=== PATIENT | female | born 1985 | race Caucasian/White ===

== ENCOUNTER → 2016-05-24 | Outpatient (CLI) | payer OTHER ==
[~2016-05-24] VITALS: Ht 167.6 cm; Wt 59.0 kg
[~2016-05-24] MED LIST: LIDOCAINE 2% INJ 100 MG/5 ML SDV (FOR ANES.) As Ordered ONE; LINZ290C PO; NS 1,000 ML IV SCH; PROPOFOL 200 MG/20 ML VIAL As Ordered ONE; SPRI28TA PO
--- NOTE | 2016-05-24 12:30 | ROOR ---
Patient Name: Milli Garrison Procedure Date: 05/24/2016 12:12 PM Date of : 1985 Age: 31 Room: [facility] Gender: Female Note Status: Finalized Procedure: Upper GI endoscopy Indications: Heartburn Providers: Sidney LIM MD Referring MD: Nafisa ROWE ([facility]/Brie Vides), WATERSHED TENDER Requesting Provider: Medicines: Monitored Anesthesia Care Complications: No immediate complications. Procedure: Pre-Anesthesia Assessment: - The heart rate, respiratory rate, oxygen saturations, blood pressure, adequacy of pulmonary ventilation, and response to care were monitored throughout the procedure. The Endoscope was introduced through the mouth, and advanced to the second part of duodenum. The upper GI endoscopy was accomplished without difficulty. The patient tolerated the procedure well. Findings: The examined esophagus was normal. The entire examined stomach was normal. A post-ulcer deformity was found in the second portion of the duodenum. Biopsies were taken with a cold forceps for histology. Impression: - Normal esophagus. - Normal stomach. - Duodenal deformity/(old scars from possible previous duodenal ulcer disease). Biopsied. Recommendation: - Continue present medications. - Observe patient's clinical course. - Telephone endoscopist for pathology results in 2 weeks. Sidney Lim MD Sidney LIM MD 05/24/2016 12:30:06 PM This report has been signed electronically. Number of Addenda: 0 Note Initiated On: 05/24/2016 12:12 PM Estimated Blood Loss: Estimated blood loss: none.
--- NOTE | 2016-05-24 13:03 | ROOR ---
Patient Name: Milli Garrison Procedure Date: 05/24/2016 12:13 PM Date of : 1985 Age: 31 Room: [facility] Gender: Female Note Status: Finalized Procedure: Colonoscopy Indications: Generalized abdominal pain, Chronic diarrhea Providers: Sidney LIM MD Referring MD: Nafisa ROWE ([facility]/Brie Vides), INDUSTRIAL CONTROLLER Requesting Provider: Medicines: Monitored Anesthesia Care Complications: No immediate complications. Procedure: Pre-Anesthesia Assessment: - The heart rate, respiratory rate, oxygen saturations, blood pressure, adequacy of pulmonary ventilation, and response to care were monitored throughout the procedure. The Colonoscope was introduced through the anus and advanced to 4 cm into the ileum. The colonoscopy was performed without difficulty. The patient tolerated the procedure well. The quality of the bowel preparation was fair. Findings: The perianal and digital rectal examinations were normal. Pertinent negatives include no palpable rectal lesions. (EXAM: Complete, PREP: Fair/Adequate) The terminal ileum contained a benign-appearing, intrinsic severe stenosis that was non-traversed. Biopsies were taken with a cold forceps for histology. Patchy inflammation, severe and characterized by erythema, scarring and deep ulcerations was found in the terminal ileum. Biopsies were taken with a cold forceps for histology. A 5 mm polyp was found in the rectum. The polyp was sessile. The polyp was removed with a cold snare. Resection and retrieval were complete. The exam was otherwise without abnormality. Impression: - EXAM: Complete, PREP: Fair/Adequate - Crohns disease of the ileum/small bowel is suspected: Ileitis,ulcerations and stenosis most consistent with Crohn's disease. Biopsied. - One 5 mm polyp in the mid rectum, removed with a cold snare. Resected and retrieved. - The colon examination was otherwise normal. - (Note Upper scope of earlier today: The duodenal scars are likely related to small bowel crohns disease as well) Recommendation: - STOP: Linzess, you can use Miralax once or twice a day if necessary - START:Use Pentasa/Mesalamine 1 gram four times a day - START:Use Entocort/Budesonide 9 mg one time per day. (or prednisone depending on your insurance coverage) - (the script was sent to your pharmacy on file) - complete stool testing--my office will send you script - complete a small bowel X-Ray study--my office will set you up - Return to my office in 3-4-5 weeks. (my office will call you) Sidney Lim MD Sidney LIM MD 05/24/2016 1:02:55 PM This report has been signed electronically. Number of Addenda: 0 Note Initiated On: 05/24/2016 12:13 PM Estimated Blood Loss: Estimated blood loss: none.
[2016-05-24 13:10] VITALS: BP 108/68
== END ==
LOC: M OPP 11:46
PROVIDERS: ATTEND Internal Medicine Gastroenterology
DX: R10.84 Generalized abdominal pain (principal); K31.89 Other diseases of stomach and duodenum; K56.69 Other intestinal obstruction; K62.1 Rectal polyp; R12 Heartburn; K59.00 Constipation, unspecified; R13.10 Dysphagia, unspecified; K21.9 Gastro-esophageal reflux disease without esophagitis; K58.9 Irritable bowel syndrome, unspecified; Z79.899 Other long term (current) drug therapy

== ENCOUNTER → 2016-06-06 | Outpatient (CLI) | payer OTHER ==
[~2016-06-06] MED LIST changes: +E-Z PAQUE 60% w/v SUSP 355ML BOTTLE As Ordered ONE; -LIDOCAINE 2% INJ 100 MG/5 ML SDV (FOR ANES.) As Ordered ONE; -NS 1,000 ML IV SCH; -PROPOFOL 200 MG/20 ML VIAL As Ordered ONE
--- NOTE | 2016-06-06 16:31 | REP ---
SMALL BOWEL FOLLOW-THROUGH: The procedure was performed under the direct supervision of Dr. Cadena. The images were reviewed with Dr. Cadena. The aerospace assembler film shows no organomegaly or pathological masses. The intestinal gas pattern is nonspecific. Liquid barium was administered and the barium column was followed through the small bowel to the level of the terminal ileum. Small bowel transit time is approximately 3 hours. Within the terminal ileum there is mucosal thickening and irregularity. There is no fistula identified. These findings are consistent with Crohn's disease. The remainder of the small bowel appears unremarkable. IMPRESSION: Within the terminal ileum there is mucosal thickening and irregularity which is consistent with Crohn's disease. There are no fistulas identified. 1 minutes and 19 seconds of fluoroscopy time was utilized for this procedure.
== END ==
LOC: M RAD 08:56
PROVIDERS: ATTEND Internal Medicine Gastroenterology
DX: K50.018 Crohn's disease of small intestine with other complication (principal)

== ENCOUNTER → 2016-06-06 | Outpatient (CLI) | payer OTHER ==
[~2016-06-06] MED LIST changes: -E-Z PAQUE 60% w/v SUSP 355ML BOTTLE As Ordered ONE
[2016-06-06 09:30] LABS: ALBUMIN 2.5 GM/DL (3.2-5.2); ALBUMIN/GLOBULIN RATIO 0.81 (1.00-1.93); ALKALINE PHOSPHATASE 63 U/L (45-117); ALT/SGPT 12 U/L (12-78); ANION GAP 7 MEQ/L (8-16); AST/SGOT 7 U/L (15-37); BILIRUBIN,TOTAL 0.1 MG/DL (0.2-1.0); BLOOD UREA NITROGEN 10 MG/DL (7-18); CALCIUM LEVEL 8.2 MG/DL (8.5-10.1); CARBON DIOXIDE LEVEL 25 MEQ/L (21-32); CHLORIDE LEVEL 111 MEQ/L (98-107); CREATININE FOR GFR 0.62 MG/DL (0.55-1.02); GLOMERULAR FILTRATION RATE > 60.0 (>60); GLUCOSE, FASTING 86 MG/DL (70-105); POTASSIUM SERUM 4.1 MEQ/L (3.5-5.1); SODIUM LEVEL 143 MEQ/L (136-145); TOTAL PROTEIN 5.6 GM/DL (6.4-8.2)
[2016-06-06 09:37] LABS: BASO % 0.2 % (0.0-1.0); EOS # 0.2 K/mm3 (0.0-0.50); EOS % 2.6 % (0.0-3.0); LARGE UNSTAINED CELL # 0.1 K/mm3 (0.0-0.4); LARGE UNSTAINED CELL % 1.6 % (0.0-4.0); LYMPH # 1.8 K/mm3 (1.5-4.5); MEAN CORPUSCULAR HEMOGLOBIN 23.5 pg (27.0-33.0); MEAN CORPUSCULAR HGB CONC 29.8 g/dl (32.0-36.5); MONO # 0.5 K/mm3 (0.0-0.8); MONO % 6.3 % (0.0-5.0); NEUTROPHILS # 4.9 K/mm3 (1.8-7.7); NEUTROPHILS % 66.3 % (36.0-66.0); PLATELET COUNT, AUTOMATED 420 k/mm3 (150-450); RED CELL DISTRIBUTION WIDTH 16.4 % (11.5-14.5); WHITE BLOOD COUNT 7.4 K/mm3 (4.0-10.0)
[2016-06-06 10:01] LABS: FOLATE 4.8 NG/ML; VITAMIN B12 LEVEL 159 PG/ML
[2016-06-06 10:38] LABS: ERYTHROCYTE SEDIMENTATION RATE 22 mm/hr (0-20)
== END ==
LOC: M LAB 08:10
PROVIDERS: ATTEND Internal Medicine Gastroenterology
DX: K50.018 Crohn's disease of small intestine with other complication (principal)

== ENCOUNTER → 2016-06-08 | Outpatient (REF) | payer OTHER | LOC: M LAB REF 14:49 | PROVIDERS: ATTEND Internal Medicine Gastroenterology | DX: K50.018 Crohn's disease of small intestine with other complication (principal) ==

== ENCOUNTER → 2016-06-30 | Outpatient (CLI) | payer OTHER | LOC: M LAB 11:25 | PROVIDERS: ATTEND Internal Medicine Gastroenterology | DX: K50.018 Crohn's disease of small intestine with other complication (principal) ==

== ENCOUNTER → 2016-08-30 | Outpatient (CLI) | payer OTHER ==
[2016-08-30 13:45] LABS: BASO % 0.5 % (0.0-1.0); EOS # 0.1 K/mm3 (0.0-0.50); EOS % 2.1 % (0.0-3.0); LARGE UNSTAINED CELL # 0.1 K/mm3 (0.0-0.4); LARGE UNSTAINED CELL % 2.3 % (0.0-4.0); LYMPH # 1.5 K/mm3 (1.5-4.5); LYMPH % 26.7 % (24.0-44.0); MEAN CORPUSCULAR HEMOGLOBIN 24.4 pg (27.0-33.0); MEAN CORPUSCULAR HGB CONC 29.8 g/dl (32.0-36.5); MEAN CORPUSCULAR VOLUME 81.9 fl (80.0-96.0); MONO # 0.3 K/mm3 (0.0-0.8); MONO % 6.4 % (0.0-5.0); NEUTROPHILS # 3.2 K/mm3 (1.8-7.7); PLATELET COUNT, AUTOMATED 331 k/mm3 (150-450); RED CELL DISTRIBUTION WIDTH 17.4 % (11.5-14.5); WHITE BLOOD COUNT 5.1 K/mm3 (4.0-10.0)
[2016-08-30 14:08] LABS: ALBUMIN 2.9 GM/DL (3.2-5.2); ALBUMIN/GLOBULIN RATIO 0.94 (1.00-1.93); ALKALINE PHOSPHATASE 52 U/L (45-117); ALT/SGPT 16 U/L (12-78); ANION GAP 6 MEQ/L (8-16); AST/SGOT 9 U/L (15-37); BILIRUBIN,TOTAL 0.3 MG/DL (0.2-1.0); BLOOD UREA NITROGEN 10 MG/DL (7-18); CARBON DIOXIDE LEVEL 26 MEQ/L (21-32); CHLORIDE LEVEL 111 MEQ/L (98-107); CHOLESTEROL LEVEL 183 MG/DL (<200); CREATININE FOR GFR 0.76 MG/DL (0.55-1.02); GLOMERULAR FILTRATION RATE > 60.0 (>60); GLUCOSE, FASTING 73 MG/DL (70-105); POTASSIUM SERUM 4.4 MEQ/L (3.5-5.1); SODIUM LEVEL 143 MEQ/L (136-145); TRIGLYCERIDES LEVEL 176 MG/DL (<150)
== END ==
LOC: M WUC 10:08
PROVIDERS: ATTEND Nurse Practitioner Family
DX: Z00.00 Encounter for general adult medical examination without abnormal findings (principal); Z13.220 Encounter for screening for lipoid disorders

== ENCOUNTER → 2016-10-17 | Outpatient (CLI) | payer OTHER ==
[~2016-10-17] MED LIST changes: +AZUR1TAB; +CLOT1CRE6 TOP; +FLUC150T; +HYDR-3363 PO
[2016-10-17 12:44] LABS: BASO % 0.8 % (0.0-1.0); EOS # 0.1 K/mm3 (0.0-0.50); EOS % 2.1 % (0.0-3.0); LARGE UNSTAINED CELL # 0.2 K/mm3 (0.0-0.4); LYMPH # 1.6 K/mm3 (1.5-4.5); LYMPH % 26.1 % (24.0-44.0); MEAN CORPUSCULAR HEMOGLOBIN 24.6 pg (27.0-33.0); MEAN CORPUSCULAR HGB CONC 29.5 g/dl (32.0-36.5); MEAN CORPUSCULAR VOLUME 83.3 fl (80.0-96.0); MONO # 0.3 K/mm3 (0.0-0.8); MONO % 4.9 % (0.0-5.0); NEUTROPHILS # 3.9 K/mm3 (1.8-7.7); NEUTROPHILS % 63.1 % (36.0-66.0); PLATELET COUNT, AUTOMATED 331 k/mm3 (150-450); RED CELL DISTRIBUTION WIDTH 15.9 % (11.5-14.5); RETIC HEMOGLOBIN CONTENT CHr 25.7 PG (24-36); RETICULOCYTE ABSOLUTE ADVIA212 89 x10(9)/L (17-77); WHITE BLOOD COUNT 6.2 K/mm3 (4.0-10.0)
[2016-10-17 13:08] LABS: FOLATE 14.1 NG/ML (>5.4); VITAMIN B12 LEVEL 470 PG/ML (247-911)
[2016-10-17 13:17] LABS: ALBUMIN 3.4 GM/DL (3.2-5.2); ALBUMIN/GLOBULIN RATIO 0.85 (1.00-1.93); ALKALINE PHOSPHATASE 57 U/L (45-117); ALT/SGPT 19 U/L (12-78); ANION GAP 12 MEQ/L (8-16); AST/SGOT 10 U/L (15-37); BILIRUBIN,TOTAL 0.3 MG/DL (0.2-1.0); BLOOD UREA NITROGEN 11 MG/DL (7-18); CARBON DIOXIDE LEVEL 20 MEQ/L (21-32); CHLORIDE LEVEL 110 MEQ/L (98-107); CREATININE FOR GFR 0.89 MG/DL (0.55-1.02); FERRITIN 3 NG/ML (8-252); GLOMERULAR FILTRATION RATE > 60.0 (>60); GLUCOSE, FASTING 75 MG/DL (70-105); PERCENT SATURATION 4.7 % (13.2-37.4); POTASSIUM SERUM 4.6 MEQ/L (3.5-5.1); SODIUM LEVEL 142 MEQ/L (136-145); TOTAL IRON BINDING CAPACITY 551 UG/DL (250-450); TOTAL PROTEIN 7.4 GM/DL (6.4-8.2)
== END ==
LOC: M WUC 08:52
PROVIDERS: ATTEND Nurse Practitioner Family
DX: D64.9 Anemia, unspecified (principal); K50.919 Crohn's disease, unspecified, with unspecified complications

== ENCOUNTER → 2016-12-28 | Outpatient (REF) | payer OTHER | LOC: M LAB REF 16:09 | PROVIDERS: ATTEND Physician Assistant | DX: R30.0 Dysuria (principal) ==

== ENCOUNTER 2017-01-10 14:53 | Emergency (ER) | payer OTHER ==
[~2017-01-10] VITALS: Ht 165.1 cm; Wt 63.6 kg
[~2017-01-10 14:53] MED LIST changes: -AZUR1TAB; -CLOT1CRE6 TOP; -FLUC150T; -HYDR-3363 PO
[2017-01-10] MEDS ORDERED: AZUR1TAB (15:10)
[2017-01-10] MEDS ORDERED: FLUC150T (15:10)
[2017-01-10] MEDS ORDERED: CLOT1CRE6 TOP (18:24)
[2017-01-10] MEDS ORDERED: HYDR-3363 PO (18:24)
[2017-01-10 18:29] VITALS: BP 113/63
== END 2017-01-10 18:33 | disposition home or self-care (01) ==
LOC: M ED 14:53
DX: N76.0 Acute vaginitis (principal); K50.90 Crohn's disease, unspecified, without complications; Z79.899 Other long term (current) drug therapy

== ENCOUNTER 2017-01-11 09:53 | Outpatient (CLI) | payer OTHER ==
[~2017-01-11] VITALS: Ht 165.1 cm; Wt 63.6 kg
[~2017-01-11 09:53] MED LIST changes: +AZUR1TAB; +CLOT1CRE6 TOP; +FLUC150T; +HYDR-3363 PO
[2017-01-11] MEDS ORDERED: USTEKINUMAB 390 MG in NS 172 ML IV ONE ×4 (11:00)
== END 2017-01-11 13:45 | disposition home or self-care (01) ==
LOC: M INFU 09:53
PROVIDERS: ATTEND Internal Medicine Gastroenterology
DX: K50.018 Crohn's disease of small intestine with other complication (principal); Z79.899 Other long term (current) drug therapy; Z88.8 Allergy status to other drugs, medicaments and biological substances
CPT/HCPCS: 96365; 96366; Q9989

== ENCOUNTER → 2017-03-20 | Outpatient (CLI) | payer OTHER ==
[2017-03-20 19:39] LABS: ALBUMIN 3.1 GM/DL (3.2-5.2); ALBUMIN/GLOBULIN RATIO 0.74 (1.00-1.93); ALKALINE PHOSPHATASE 70 U/L (45-117); ALT/SGPT 27 U/L (12-78); ANION GAP 9 MEQ/L (8-16); AST/SGOT 13 U/L (7-37); BILIRUBIN,TOTAL 0.3 MG/DL (0.2-1.0); BLOOD UREA NITROGEN 11 MG/DL (7-18); CALCIUM LEVEL 8.7 MG/DL (8.5-10.1); CARBON DIOXIDE LEVEL 27 MEQ/L (21-32); CHLORIDE LEVEL 106 MEQ/L (98-107); GLOMERULAR FILTRATION RATE > 60.0 (>60); GLUCOSE, FASTING 97 MG/DL (70-105); PERCENT SATURATION 15.3 % (13.2-45.0); POTASSIUM SERUM 4.2 MEQ/L (3.5-5.1); SODIUM LEVEL 142 MEQ/L (136-145); TOTAL IRON BINDING CAPACITY 437 UG/DL (250-450); TOTAL PROTEIN 7.3 GM/DL (6.4-8.2)
[2017-03-20 20:03] LABS: BASO # 0.1 10^3/uL (0.0-0.2); BASO % 0.7 % (0.0-1.0); EOS # 0.1 10^3/uL (0.0-0.50); IMMATURE GRANULOCYTE % 0.6 % (0-0); LYMPH # 2.2 10^3/uL (1.5-4.5); LYMPH % 29.8 % (24.0-44.0); MEAN CORPUSCULAR HEMOGLOBIN 26.5 pg (27.0-33.0); MEAN CORPUSCULAR HGB CONC 30.9 g/dl (32.0-36.5); MEAN CORPUSCULAR VOLUME 85.7 fl (80.0-96.0); MONO # 0.6 10^3/uL (0.0-0.8); MONO % 8.7 % (0.0-5.0); NEUTROPHILS # 4.3 10^3/uL (1.8-7.7); NEUTROPHILS % 59.2 % (36.0-66.0); PLATELET COUNT, AUTOMATED 383 10^3/uL (150-450); RED CELL DISTRIBUTION WIDTH 16.6 % (11.5-14.5); WHITE BLOOD COUNT 7.2 10^3/uL (4.0-10.0)
== END ==
LOC: M WUC 11:02
PROVIDERS: ATTEND Nurse Practitioner Family
DX: D64.9 Anemia, unspecified (principal)

== ENCOUNTER → 2017-04-06 | Outpatient (CLI) | payer OTHER ==
--- NOTE | 2017-04-06 13:17 | REP ---
Abdominal series: Four views. History: Pain. Findings: Upright view of the chest shows blunting of the left lateral pleural angle, tenting consistent with pleuroparenchymal fibrosis. There is no evidence of infiltrate or free subdiaphragmatic air. Heart is not enlarged. Supine and erect views of the abdomen demonstrate a normal bowel gas pattern. There is an 8 mm calcific opacity projecting in the right lower abdomen on the one of the two views. This may be artifact or mesenteric lymph node calcification. It was not present on June 06, 2016 prior KUB. Flank stripes and psoas margins are intact. No mass, organomegaly or other pathologic calcification is seen. There is a phlebolith in the pelvis. Impression: Normal bowel gas pattern. Tenting and scarring in the left lateral pleural angle. Signed by Yassine Spear MD 04/06/2017 03:59 P
== END ==
LOC: M RAD 12:33
PROVIDERS: ATTEND Physician Assistant Medical
DX: R10.9 Unspecified abdominal pain (principal); R19.7 Diarrhea, unspecified; K50.018 Crohn's disease of small intestine with other complication

== ENCOUNTER → 2017-04-06 | Outpatient (REF) | payer OTHER | LOC: M LAB REF 11:01 | PROVIDERS: ATTEND Physician Assistant Medical | DX: R19.7 Diarrhea, unspecified (principal) ==

== ENCOUNTER → 2017-05-09 | Outpatient (CLI) | payer OTHER | LOC: M WUC 09:48 | DX: R14.0 Abdominal distension (gaseous) (principal) | CPT/HCPCS: 74021 ==

== ENCOUNTER → 2017-05-09 | Outpatient (CLI) | payer OTHER ==
[2017-05-09 13:31] LABS: BASO # 0.1 10^3/uL (0.0-0.2); BASO % 0.8 % (0.0-1.0); EOS # 0.1 10^3/uL (0.0-0.50); EOS % 1.3 % (0.0-3.0); HEMATOCRIT 39.9 % (36.0-47.0); HEMOGLOBIN 12.6 g/dl (12.0-16.0); IMMATURE GRANULOCYTE % 0.4 % (0-0); LYMPH # 1.9 10^3/uL (1.5-4.5); LYMPH % 22.8 % (24.0-44.0); MEAN CORPUSCULAR HEMOGLOBIN 27.1 pg (27.0-33.0); MEAN CORPUSCULAR HGB CONC 31.6 g/dl (32.0-36.5); MEAN CORPUSCULAR VOLUME 85.8 fl (80.0-96.0); MONO # 0.5 10^3/uL (0.0-0.8); MONO % 5.8 % (0.0-5.0); NEUTROPHILS # 5.7 10^3/uL (1.8-7.7); NEUTROPHILS % 68.9 % (36.0-66.0); PLATELET COUNT, AUTOMATED 333 10^3/uL (150-450); RED BLOOD COUNT 4.65 10^6/uL (4.00-5.40); RED CELL DISTRIBUTION WIDTH 15.5 % (11.5-14.5); WHITE BLOOD COUNT 8.3 10^3/uL (4.0-10.0)
[2017-05-09 13:46] LABS: ALBUMIN 3.1 GM/DL (3.2-5.2); ALBUMIN/GLOBULIN RATIO 0.76 (1.00-1.93); ALKALINE PHOSPHATASE 73 U/L (45-117); ALT/SGPT 20 U/L (12-78); ANION GAP 5 MEQ/L (8-16); AST/SGOT 11 U/L (7-37); BILIRUBIN,TOTAL 0.2 MG/DL (0.2-1.0); BLOOD UREA NITROGEN 10 MG/DL (7-18); CALCIUM LEVEL 8.7 MG/DL (8.5-10.1); CARBON DIOXIDE LEVEL 26 MEQ/L (21-32); CHLORIDE LEVEL 109 MEQ/L (98-107); CREATININE FOR GFR 0.82 MG/DL (0.55-1.02); FREE T4 1.05 NG/DL (0.76-1.46); GLOMERULAR FILTRATION RATE > 60.0 (>60); GLUCOSE, FASTING 82 MG/DL (70-100); IRON (FE) 60 UG/DL (50-170); PERCENT SATURATION 13.2 % (13.2-45.0); POTASSIUM SERUM 4.2 MEQ/L (3.5-5.1); SODIUM LEVEL 140 MEQ/L (136-145); THYROID STIMULATING HORMONE 0.613 uIU/ML (0.358-3.740); TOTAL IRON BINDING CAPACITY 454 UG/DL (250-450); TOTAL PROTEIN 7.2 GM/DL (6.4-8.2)
== END ==
LOC: M WUC 09:54
DX: D64.9 Anemia, unspecified (principal)
CPT/HCPCS: 83550

== ENCOUNTER → 2017-05-30 | Outpatient (CLI) | payer OTHER ==
[2017-05-31 10:59] LABS: HEPATITIS B SURFACE ANTIGEN NEGATIVE (NEGATIVE)
[2017-06-02 00:06] LABS: QUANTIFERON GOLD TB Negative (Negative); TB Test (QFT) Antigen 0.07 IU/mL (.); TB Test (QFT) Antigen Minus Ni 0.02 IU/mL (.); TB Test (QFT) Nil 0.05 IU/mL (.)
== END ==
LOC: M WUC 10:20
DX: K50.018 Crohn's disease of small intestine with other complication (principal)
CPT/HCPCS: 87340

== ENCOUNTER → 2017-06-27 | Outpatient (CLI) | payer OTHER | LOC: M WHC 15:07 | DX: K50.818 Crohn's disease of both small and large intestine with other complication (principal) | CPT/HCPCS: 77080 ==